=== PATIENT | female | born 1935 | race Caucasian/White ===

== ENCOUNTER 2016-09-03 14:35 | Emergency (ER) | payer OTHER ==
[~2016-09-03] VITALS: Ht 162.6 cm; Wt 75.0 kg
[~2016-09-03 14:35] MED LIST: BUPR1TAB29 PO; HYDR-3533 PO; LISI10TA PO; SIMV20TA PO; WARF-20 PO; WARF-58 PO
[2016-09-03 14:37] VITALS: BP 170/86; PULSE 77; RESP 16; TEMP 98.9; O2SAT 96
--- NOTE | 2016-09-03 15:08 | PD ---
Physical Exam Time Seen by Provider: 15:06 Narrative 81yo F sent by PCP for black diarrhea x 1 month. Abd pain on and off. +Nausea w/o vomiting. Denies fever. Patient seen in triage. VS reviewed. Awaiting bed placement. Data Data Last Documented VS Vital Signs Date Time Temp Pulse Resp B/P Pulse Ox O2 Delivery O2 Flow Rate FiO2 09/03/16 14:37 98.9 77 16 170/86 96 Room Air MDM Supervised Visit with LING: Fe Ingram Sep 03, 2016 15:08
--- NOTE | 2016-09-03 16:21 | PD ---
HPI Chief Complaint: GI Complaint Time Seen by Provider: 16:21 Travel History International Travel<30 days: No Contact w/Intl Traveler<30days: No Traveled to known affect area: No History of Present Illness HPI 81-year-old female with a history of hypertension, paroxysmal atrial fibrillation, hyperlipidemia, anticoagulated on Coumadin presents to the emergency department for evaluation of black stools for one month. The patient states that for the past month she's had black stool daily. States that these bowel movements have been loose and watery. States that before she has a bowel movement she has some mild abdominal cramping but otherwise denies any abdominal pain. States that she has some occasional nausea but no vomiting. States that she has tried [id number] antidiarrheals without improvement of symptoms. States that she has had some occasional lightheadedness. Denies any syncope, chest pain, shortness of breath, weakness. States that her last INR was 1 week ago and was subtherapeutic and he increased her dose for a few days. Denies any prior history of GI bleed. Last colonoscopy was "many years ago." No other complaints. PFSH Past Medical History Hx Anticoagulant Therapy: Yes (COUMADIN) Arthritis: Yes Asthma: No Atrial Fibrillation: Yes Autoimmune Disease: No Blood Disorders: No Anxiety: Yes Depression: Yes Heart Rhythm Problems: Yes (ATR. FIB.) Cancer: No Cardiac Catheterization: No Cardiovascular Problems: Yes (AFIB) High Cholesterol: Yes Chemotherapy: No Chest Pain: Yes Congestive Heart Failure: No COPD: No Cerebrovascular Accident: No Diabetes: No Diminished Hearing: No Endocrine: No GERD: No Genitourinary: No Headaches: Yes Hiatal Hernia: Yes (Inguinal hernia repair) Hypertension: Yes Immune Disorder: No Implanted Vascular Access Dvce: Yes Kidney Stones: Yes Musculoskeletal: Yes Neurologic: Yes Psychiatric: No Reproductive: No Respiratory: No Migraines: No Radiation Therapy: No Renal Failure: No Seizures: No Sickle Cell Disease: No Sleep Apnea: No Thyroid Disease: No Ulcer: No ?: Not Menopausal: Yes Past Surgical History Abdominal Surgery: Yes (Hernia repair) AICD: No Appendectomy: Yes Arteriovenous Shunt: No Cardiac Surgery: No Coronary Artery Bypass Graft: No Ear Surgery: No Endocrine Surgery: No Eye Surgery: No Genitourinary Surgery: No Insulin Pump: No Joint Replacement: Yes (BL hips, BL knees, (R) shoulder) Oral Surgery: Yes (T&A) Pacemaker: No Thoracic Surgery: No Tonsillectomy: Yes (&A) Other Surgery: Yes (Bladder mesh) Social History Alcohol Use: No Tobacco Use: No Substance Use: No Allergies-Medications (Allergen,Severity, Reaction): Coded Allergies: No Known Allergies (Verified , 09/03/16) Reported Meds & Prescriptions Reported Meds & Active Scripts Active Lortab (Hydrocodone-Acetaminophen) 5-325 Mg Tab 1 Tab PO Q4H PRN Reported Bupropion HCl ER 12 HR (Bupropion HCl) 150 Mg Tab 150 Mg PO DAILY Lisinopril-Hctz 10-12.5 Mg Tab 1 Tab PO DAILY Simvastatin 20 Mg Tab 20 Mg PO DAILY Warfarin 4 Mg Tab 4 Mg PO DAILY Warfarin 3 Mg Tab 3 Mg PO DAILY Review of Systems Except as stated in HPI: all other systems reviewed are Neg Physical Exam Narrative GENERAL: Well-nourished and well-developed pleasant patient in no acute distress who is nontoxic appearing. SKIN: Warm and dry.. HEAD: Normocephalic and atraumatic. EYES: No injection, drainage, or hyphema noted. PERRLA. EOMI. ENT: No nasal drainage noted. Oropharynx is clear. NECK: Supple and the trachea is midline. CARDIOVASCULAR: Regular rate and rhythm. RESPIRATORY: Breath sounds are equal bilaterally with no accessory muscle use, wheezing, rhonchi, or crackles. GASTROINTESTINAL: Abdomen is soft, non-tender, and nondistended. RECTAL EXAM: No masses or tenderness. No stool in the rectal vault. Performed in the presence of Davina Luna RN. MUSCULOSKELETAL: No obvious deformities, swelling, cyanosis, or ecchymosis is present throughout the upper and lower extremities. Patient has full range of motion without any signs of neurovascular compromise. NEUROLOGICAL: Awake, alert, and oriented. Normal speech and gait. Cranial nerves are grossly intact. Data Data Last Documented VS Vital Signs Date Time Temp Pulse Resp B/P Pulse Ox O2 Delivery O2 Flow Rate FiO2 09/03/16 16:34 63 18 162/78 97 Room Air 09/03/16 14:37 98.9 Orders Complete Blood Count With Diff (09/03/16 16:20) Comprehensive Metabolic Panel (09/03/16 16:20) Lipase (09/03/16 16:20) Prothrombin Time / Inr (Pt) (09/03/16 16:20) Act Partial Throm Time (Ptt) (09/03/16 16:20) Type And Screen (09/03/16 16:20) Ecg Monitoring (09/03/16 16:20) Iv Access Insert/Monitor (09/03/16 16:20) Oximetry (09/03/16 16:20) Sodium Chloride 0.9% Flush (Ns Flush) (09/03/16 16:30) Labs Laboratory Tests Test 09/03/16 16:29 White Blood Count 6.9 TH/MM3 Red Blood Count 4.47 MIL/MM3 Hemoglobin 13.3 GM/DL Hematocrit 38.7 % Mean Corpuscular Volume 86.5 FL Mean Corpuscular Hemoglobin 29.7 PG Mean Corpuscular Hemoglobin 34.3 % Concent Red Cell Distribution Width 15.1 % Platelet Count 263 TH/MM3 Mean Platelet Volume 9.6 FL Neutrophils (%) (Auto) 72.1 % Lymphocytes (%) (Auto) 13.1 % Monocytes (%) (Auto) 10.7 % Eosinophils (%) (Auto) 3.5 % Basophils (%) (Auto) 0.6 % Neutrophils # (Auto) 4.9 TH/MM3 Lymphocytes # (Auto) 0.9 TH/MM3 Monocytes # (Auto) 0.7 TH/MM3 Eosinophils # (Auto) 0.2 TH/MM3 Basophils # (Auto) 0.0 TH/MM3 CBC Comment DIFF FINAL Differential Comment Prothrombin Time 19.0 SEC Prothromb Time International 1.7 RATIO Ratio Activated Partial 31.5 SEC Thromboplast Time Sodium Level 139 MEQ/L Potassium Level 4.5 MEQ/L Chloride Level 103 MEQ/L Carbon Dioxide Level 31.9 MEQ/L Anion Gap 4 MEQ/L Blood Urea Nitrogen 11 MG/DL Creatinine 0.65 MG/DL Estimat Glomerular Filtration 87 ML/MIN Rate Random Glucose 80 MG/DL Calcium Level 9.0 MG/DL Total Bilirubin 0.4 MG/DL Aspartate Amino Transf 22 U/L (AST/SGOT) Alanine Aminotransferase 33 U/L (ALT/SGPT) Alkaline Phosphatase 55 U/L Total Protein 6.7 GM/DL Albumin 3.7 GM/DL Lipase 89 U/L Blood Type A [facility] Medical Decision Making Medical Screen Exam Complete: Yes Emergency Medical Condition: Yes Differential Diagnosis GI bleed versus anticoagulation versus dehydration versus electrolyte abnormality versus gastroenteritis Narrative Course 81-year-old female presents to the emergency department for evaluation of black stool for the past month. Patient is afebrile, vital signs are stable. No evidence of hemodynamic instability. Abdominal examination is benign. On physical examination she had only a small amount of stool in the rectal vault which I applied to the right square of the hemaprompt card and was negative. IV access is obtained, labs been drawn and sent. Patient is placed on cardiac telemetry and pulse oximetry monitoring. CBC is unremarkable. CMP is unremarkable. Coag show INR is 1.7, otherwise unremarkable. Patient has remained stable without complaint while here in the emergency department. Labs are reassuring, patient is hemodynamically stable. No evidence for blood loss. Discussed all findings with the patient. She is advised to follow up as an outpatient with her PCP. Patient verbalizes understanding and agreement with treatment plan. I discussed the case with my attending physician Dr. Funez who is aware of the patients history, physical examination findings, and treatment plan. Diagnosis Primary Impression: Dark stools Referrals: Primary Care Physician Patient Instructions: General Instructions Additional Instructions: Follow-up with your Primary Care Physician. Return to the ED for any acute worsening of symptoms. Med/Other Pt SpecificInfo: No Change to Meds Disposition: 01 DISCHARGE HOME Condition: Stable Fe Larios Sep 03, 2016 16:21
[2016-09-03] MEDS ORDERED: SODIUM CHLORIDE 0.9% FLUSH 10 ML FLUSH IVF PRN (16:30)
[2016-09-03 16:31] VITALS: O2SAT 98
[2016-09-03 16:34] VITALS: BP 162/78; PULSE 63; RESP 18; O2SAT 97
[2016-09-03 16:47] LABS: AUTOMATED NEUTROPHIL # 4.9 TH/MM3 (1.8-7.7); BASOPHIL % 0.6 % (0.0-2.0); EOSINOPHIL # 0.2 TH/MM3 (0-0.4); EOSINOPHIL % 3.5 % (0.0-4.0); HEMATOCRIT 38.7 % (35.0-46.0); HEMO FLAGS DIFF FINAL; LYMPH % 13.1 % (9.0-44.0); LYMPHOCYTE # 0.9 TH/MM3 (1.0-4.8); MEAN CELL VOLUME 86.5 FL (80.0-100.0); MEAN CORPUSCULAR HEMOGLOBIN 29.7 PG (27.0-34.0); MEAN CORPUSCULAR HGB CONC 34.3 % (32.0-36.0); MONO % 10.7 % (0.0-8.0); NEUT % 72.1 % (16.0-70.0); PLATELET COUNT 263 TH/MM3 (150-450); RED BLOOD COUNT 4.47 MIL/MM3 (4.00-5.30); RED CELL DISTRIBUTION WIDTH 15.1 % (11.6-17.2); WHITE BLOOD COUNT 6.9 TH/MM3 (4.0-11.0)
[2016-09-03 17:00] LABS: APTT (PATIENT) 31.5 SEC (24.3-30.1); INTERNATIONAL NORMALIZED RATIO 1.7 RATIO
[2016-09-03 17:07] LABS: ANION GAP 4 MEQ/L (5-15); AST (GOT) 22 U/L (15-37); BICARBONATE 31.9 MEQ/L (21.0-32.0); BLOOD UREA NITROGEN 11 MG/DL (7-18); CHLORIDE 103 MEQ/L (98-107); GLOMERULAR FILTRATION RATE 87 ML/MIN (>89); POTASSIUM 4.5 MEQ/L (3.5-5.1); SODIUM (NA) 139 MEQ/L (136-145)
[2016-09-03 17:08] LABS: ALT (GPT) 33 U/L (10-53)
[2016-09-03 17:10] LABS: ALKALINE PHOSPHATASE 55 U/L (45-117); TOTAL BILIRUBIN ADULT 0.4 MG/DL (0.2-1.0)
== END 2016-09-03 18:07 | disposition home or self-care (01) ==
LOC: NEPE 14:35
DX: R19.5 Other fecal abnormalities (principal); I10 Essential (primary) hypertension; I48.0 Paroxysmal atrial fibrillation; E78.5 Hyperlipidemia, unspecified; R10.9 Unspecified abdominal pain; R11.0 Nausea; R42 Dizziness and giddiness; Z79.01 Long term (current) use of anticoagulants
CPT/HCPCS: 80053; 83690; 85025; 85610; 85730; 86850; 86900; 86901; 99283

== ENCOUNTER 2017-07-16 16:22 | Emergency (ER) | payer OTHER ==
[~2017-07-16] VITALS: Ht 162.6 cm; Wt 81.0 kg
[2017-07-16 16:27] VITALS: BP 119/64; PULSE 108; RESP 18; TEMP 97.7; O2SAT 98
[2017-07-16] MEDS ORDERED: HYDR-3516 PO (16:51)
[2017-07-16] MEDS ORDERED: BUPR1TAB70 PO (16:51)
[2017-07-16] MEDS ORDERED: SODIUM CHLORIDE 0.9% FLUSH 10 ML FLUSH IVF PRN (17:00)
--- NOTE | 2017-07-16 17:00 | PD ---
HPI Chief Complaint: Respiratory Symptoms Time Seen by Provider: 16:43 Travel History International Travel<30 days: No Contact w/Intl Traveler<30days: No Traveled to known affect area: No History of Present Illness HPI Patient is a 82-year-old female with history of atrial fibrillation currently taking Coumadin, hyperlipidemia, hypertension, presents the emergency room with complaints of shortness of breath. Patient reports that she has been feeling short of breath for the past few weeks, reports that she normally could walk to the pool without any issues, reports that walking short distances causes her to be short of breath. Patient endorses no history of PE or DVT, reports that she was sent by her primary care doctor to rule out PE and DVT as her legs have been swollen for the past 2 weeks as well. Patient denies any recent travels or trips. Patient reports that she has been compliant with her Coumadin. Patient also complains of nonproductive cough for the past few weeks, patient also concerned that she may have pneumonia. Patient does not smoke, does not use oxygen at baseline. PFSH Past Medical History Hx Anticoagulant Therapy: Yes (COUMADIN) Arthritis: Yes Asthma: No Atrial Fibrillation: Yes Autoimmune Disease: No Blood Disorders: No Anxiety: Yes Depression: Yes Heart Rhythm Problems: Yes (ATR. FIB.) Cancer: No Cardiac Catheterization: No Cardiovascular Problems: Yes (AFIB) High Cholesterol: Yes Chemotherapy: No Chest Pain: Yes Congestive Heart Failure: No COPD: No Cerebrovascular Accident: No Diabetes: No Patient Takes Glucophage: No Diminished Hearing: No Endocrine: No Gastrointestinal Disorders: No GERD: No Genitourinary: No Headaches: Yes Hiatal Hernia: Yes (Inguinal hernia repair) Heparin Induced Thrombocytopen: No Hypertension: Yes Immune Disorder: No Implanted Vascular Access Dvce: Yes Kidney Stones: Yes Musculoskeletal: Yes Neurologic: Yes Psychiatric: No Reproductive: No Respiratory: No Migraines: No Radiation Therapy: No Renal Failure: No Seizures: No Sickle Cell Disease: No Sleep Apnea: No Thyroid Disease: No Ulcer: No Tetanus Vaccination: < 5 Years ?: Not Menopausal: Yes Past Surgical History Abdominal Surgery: Yes (Hernia repair) AICD: No Appendectomy: Yes Arteriovenous Shunt: No Cardiac Surgery: No Coronary Artery Bypass Graft: No Ear Surgery: No Endocrine Surgery: No Eye Surgery: No Genitourinary Surgery: No Insulin Pump: No Joint Replacement: Yes (BL hips, BL knees, (R) shoulder) Neurologic Surgery: No Oral Surgery: Yes (T&A) Pacemaker: No Thoracic Surgery: No Tonsillectomy: Yes (&A) Other Surgery: Yes (Bladder mesh) Family History Family Myocardial Infarction: No Social History Alcohol Use: No Tobacco Use: No Substance Use: No Allergies-Medications (Allergen,Severity, Reaction): Coded Allergies: No Known Allergies (Verified Adverse Reaction, Unknown, 07/16/17) Reported Meds & Prescriptions Reported Meds & Active Scripts Active Reported Hydrocodone-Acetaminophen 5-325 mg Tab 1 Tab PO Q4H PRN Bupropion HCl ER 12 HR (Bupropion HCl) 100 Mg Tab 150 Mg PO DAILY Lisinopril-Hctz 10-12.5 Mg Tab 1 Tab PO DAILY Simvastatin 20 Mg Tab 20 Mg PO DAILY Warfarin 4 Mg Tab 4 Mg PO DAILY Warfarin 3 Mg Tab 3 Mg PO DAILY Review of Systems Cardiovascular: Positive: Dyspnea on exertion, No: Chest Pain or Discomfort, Palpitations, Irregular Rhythm, Tachycardia, Diaphoresis, Syncope Respiratory: Positive: Cough, Shortness of Breath, No: Wheezing Physical Exam Narrative GENERAL: Mild distress SKIN: Focused skin assessment warm/dry. HEAD: Atraumatic. Normocephalic. EYES: Pupils equal and round. No scleral icterus. No injection or drainage. ENT: No nasal bleeding or discharge. Mucous membranes pink and moist. NECK: Trachea midline. No JVD. CARDIOVASCULAR: Irregular regular, no murmur appreciated. RESPIRATORY: No accessory muscle use. Clear to auscultation. Breath sounds equal bilaterally. GASTROINTESTINAL: Abdomen soft, non-tender, nondistended. Hepatic and splenic margins not palpable. MUSCULOSKELETAL: No obvious deformities. No clubbing. No cyanosis. +2 nonpitting edema. NEUROLOGICAL: Awake and alert. No obvious cranial nerve deficits. Motor grossly within normal limits. Normal speech. PSYCHIATRIC: Appropriate mood and affect; insight and judgment normal. Data Data Last Documented VS Vital Signs Date Time Temp Pulse Resp B/P (MAP) Pulse Ox O2 Delivery O2 Flow Rate FiO2 07/16/17 20:01 99 Nasal Cannula 2.00 07/16/17 20:01 74 18 146/96 (113) 07/16/17 16:27 97.7 Orders Orders Electrocardiogram (07/16/17 ) Complete Blood Count With Diff (07/16/17 16:51) Comprehensive Metabolic Panel (07/16/17 16:51) B-Type Natriuretic Peptide (07/16/17 16:51) Act Partial Throm Time (Ptt) (07/16/17 16:51) Prothrombin Time / Inr (Pt) (07/16/17 16:51) Magnesium (Mg) (07/16/17 16:51) Ckmb (Isoenzyme) Profile (07/16/17 16:51) Troponin I (07/16/17 16:51) Urinalysis - C+S If Indicated (07/16/17 16:51) Influenzae A/B Antigen (07/16/17 16:51) Iv Access Insert/Monitor (07/16/17 16:51) Ecg Monitoring (07/16/17 16:51) Oximetry (07/16/17 16:51) Oxygen Administration (07/16/17 16:51) Chest, Single Ap (07/16/17 16:51) Sodium Chloride 0.9% Flush (Ns Flush) (07/16/17 17:00) Us Leg Venous Doppler Bilat (07/16/17 ) Ct Pulmonary Angiogram (07/16/17 18:24) Troponin I (07/16/17 20:00) Iohexol 350 Inj (Omnipaque 350 Inj) (07/16/17 19:09) Electrocardiogram (07/16/17 ) Potassium Chloride (Kcl) (07/16/17 19:30) Electrocardiogram (07/16/17 17:11) Labs Laboratory Tests Test 07/16/17 17:00 07/16/17 20:00 White Blood Count 9.9 TH/MM3 Red Blood Count 5.02 MIL/MM3 Hemoglobin 13.9 GM/DL Hematocrit 42.5 % Mean Corpuscular Volume 84.6 FL Mean Corpuscular Hemoglobin 27.6 PG Mean Corpuscular Hemoglobin Concent 32.6 % Red Cell Distribution Width 15.1 % Platelet Count 358 TH/MM3 Mean Platelet Volume 8.2 FL Neutrophils (%) (Auto) 74.4 % Lymphocytes (%) (Auto) 14.8 % Monocytes (%) (Auto) 7.0 % Eosinophils (%) (Auto) 3.3 % Basophils (%) (Auto) 0.5 % Neutrophils # (Auto) 7.4 TH/MM3 Lymphocytes # (Auto) 1.5 TH/MM3 Monocytes # (Auto) 0.7 TH/MM3 Eosinophils # (Auto) 0.3 TH/MM3 Basophils # (Auto) 0.0 TH/MM3 CBC Comment DIFF FINAL Differential Comment Prothrombin Time 39.6 SEC Prothromb Time International Ratio 3.9 RATIO Activated Partial Thromboplast Time 44.0 SEC Blood Urea Nitrogen 13 MG/DL Creatinine 0.83 MG/DL Random Glucose 102 MG/DL Total Protein 7.6 GM/DL Albumin 3.6 GM/DL Calcium Level 8.7 MG/DL Magnesium Level 2.1 MG/DL Alkaline Phosphatase 81 U/L Aspartate Amino Transf (AST/SGOT) 18 U/L Alanine Aminotransferase (ALT/SGPT) 27 U/L Total Bilirubin 0.7 MG/DL Sodium Level 140 MEQ/L Potassium Level 3.4 MEQ/L Chloride Level 104 MEQ/L Carbon Dioxide Level 28.6 MEQ/L Anion Gap 7 MEQ/L Estimat Glomerular Filtration Rate 66 ML/MIN Total Creatine Kinase 90 U/L Troponin I LESS THAN 0.02 NG/ML LESS THAN 0.02 NG/ML B-Type Natriuretic Peptide 195 PG/ML MDM Medical Decision Making Medical Screen Exam Complete: Yes Emergency Medical Condition: Yes Medical Record Reviewed: Yes Interpretation(s) Vital Signs Date Time Temp Pulse Resp B/P (MAP) Pulse Ox O2 Delivery O2 Flow Rate FiO2 07/16/17 16:49 93 Nasal Cannula 2.00 07/16/17 16:34 18 98 Room Air 07/16/17 16:27 97.7 108 18 119/64 (82) 98 Room Air Differential Diagnosis A. fib with RVR, CHF, DVT, PE, pneumonia, influenza, electrolyte abnormality, pneumothorax Narrative Course Patient is an 82 year old female who presents to the ER with complaints of 2-3 weeks of nonproductive cough with dyspnea on exertion with b/l lower extremity edema. During the course of the patients emergency department visit, the patients history, examination, and differential diagnosis were reviewed with the patient. The patient was placed on a manager cardiac with oximetry and frequent blood pressure monitoring. The patient had an IV access obtained and blood work sent for analysis. The patient was initially provided oxygen as her pulse ox was 92-93% on room air The patients laboratory studies were reviewed and remarkable for: Laboratory Tests Test 07/16/17 17:00 White Blood Count 9.9 TH/MM3 (4.0-11.0) Red Blood Count 5.02 MIL/MM3 (4.00-5.30) Hemoglobin 13.9 GM/DL (11.6-15.3) Hematocrit 42.5 % (35.0-46.0) Mean Corpuscular Volume 84.6 FL (80.0-100.0) Mean Corpuscular Hemoglobin 27.6 PG (27.0-34.0) Mean Corpuscular Hemoglobin Concent 32.6 % (32.0-36.0) Red Cell Distribution Width 15.1 % (11.6-17.2) Platelet Count 358 TH/MM3 (150-450) Mean Platelet Volume 8.2 FL (7.0-11.0) Neutrophils (%) (Auto) 74.4 % (16.0-70.0) Lymphocytes (%) (Auto) 14.8 % (9.0-44.0) Monocytes (%) (Auto) 7.0 % (0.0-8.0) Eosinophils (%) (Auto) 3.3 % (0.0-4.0) Basophils (%) (Auto) 0.5 % (0.0-2.0) Neutrophils # (Auto) 7.4 TH/MM3 (1.8-7.7) Lymphocytes # (Auto) 1.5 TH/MM3 (1.0-4.8) Monocytes # (Auto) 0.7 TH/MM3 (0-0.9) Eosinophils # (Auto) 0.3 TH/MM3 (0-0.4) Basophils # (Auto) 0.0 TH/MM3 (0-0.2) CBC Comment DIFF FINAL Differential Comment Prothrombin Time 39.6 SEC (9.8-11.6) Prothromb Time International Ratio 3.9 RATIO Activated Partial Thromboplast Time 44.0 SEC (24.3-30.1) Blood Urea Nitrogen 13 MG/DL (7-18) Creatinine 0.83 MG/DL (0.50-1.00) Random Glucose 102 MG/DL (74-106) Total Protein 7.6 GM/DL (6.4-8.2) Albumin 3.6 GM/DL (3.4-5.0) Calcium Level 8.7 MG/DL (8.5-10.1) Magnesium Level 2.1 MG/DL (1.5-2.5) Alkaline Phosphatase 81 U/L (45-117) Aspartate Amino Transf (AST/SGOT) 18 U/L (15-37) Alanine Aminotransferase (ALT/SGPT) 27 U/L (10-53) Total Bilirubin 0.7 MG/DL (0.2-1.0) Sodium Level 140 MEQ/L (136-145) Potassium Level 3.4 MEQ/L (3.5-5.1) Chloride Level 104 MEQ/L (98-107) Carbon Dioxide Level 28.6 MEQ/L (21.0-32.0) Anion Gap 7 MEQ/L (5-15) Estimat Glomerular Filtration Rate 66 ML/MIN (>89) Total Creatine Kinase 90 U/L (26-192) Troponin I LESS THAN 0.02 NG/ML B-Type Natriuretic Peptide 195 PG/ML (0-100) Radiology studies were reviewed and remarkable for: Last Impressions Chest X-Ray 07/16/171650 Signed Impressions: Service Date/Time: June 16:58 - CONCLUSION: 1. Cardiomegaly and COPD. 2. No evidence of acute air space disease or congestion. 3. Status post right shoulder arthroplasty. Hayden Lala MD Lower Extremity Ultrasound 07/16/17 0000 Signed Impressions: Service Date/Time: June 17:39 - CONCLUSION: Normal examination. Gama Barbosa MD Microbiology Date/Time Source Procedure Growth Status 07/16/17 17:00 Nasal Aspirate Influenza Types A,B Antigen (LENY) - Final NEGATIVE FOR FLU A AND B ANTIGEN.... Complete Last Impressions Chest X-Ray 07/16/171650 Signed Impressions: Service Date/Time: June 16:58 - CONCLUSION: 1. Cardiomegaly and COPD. 2. No evidence of acute air space disease or congestion. 3. Status post right shoulder arthroplasty. Hayden Lala MD Lower Extremity Ultrasound 07/16/17 0000 Signed Impressions: Service Date/Time: June 17:39 - CONCLUSION: Normal examination. Gama Barbosa MD CT angio: no evidence of PE, no consolidation or pneumothorax Patient lab work was evaluated, potassium was 2.4 which was repleted. Troponin was 0.02, BNP 195, INR 3.9. trop at 2000 0.02 Doppler lower extremities and no evidence of DVT, CT showed no evidence of PE. I discussed with patient need to observe her in the hospital to rule out cardiac causes for her shortness of breath. Patient refuses admission to the hospital. Patient would rather follow-up with her primary care doctor and adamantly refuses admission to the hospital. Signs and symptoms of when to return to the ER was reviewed with patient in detail. Discussed with patient that she will need to follow-up with a head men's tennis coach as soon as possible, patient encouraged not to perform any strenuous activities until she is seen and cleared by her head men's tennis coach. I did offer patient admission to the hospital multiple times for workup for her dyspnea which patient refuses. Risks and benefits were reviewed with patient in detail. Diagnosis Primary Impression: Dyspnea Qualified Codes: R06.09 - Other forms of dyspnea Patient Instructions: General Instructions Additional Instructions: Please provide patient with a copy of their lab work and studies at discharge* * Please follow up with your primary care doctor as soon as possible Return to the ER if symptoms worsen or progress Return to the ER as needed No exertional activities until you are seen and cleared by your head men's tennis coach Disposition: 01 DISCHARGE HOME Condition: Stable Debby Peters DO Jul 16, 2017 17:00
[2017-07-16 17:12] LABS: AUTOMATED NEUTROPHIL # 7.4 TH/MM3 (1.8-7.7); BASOPHIL % 0.5 % (0.0-2.0); EOSINOPHIL # 0.3 TH/MM3 (0-0.4); EOSINOPHIL % 3.3 % (0.0-4.0); HEMATOCRIT 42.5 % (35.0-46.0); HEMOGLOBIN 13.9 GM/DL (11.6-15.3); LYMPH % 14.8 % (9.0-44.0); LYMPHOCYTE # 1.5 TH/MM3 (1.0-4.8); MEAN CELL VOLUME 84.6 FL (80.0-100.0); MEAN CORPUSCULAR HEMOGLOBIN 27.6 PG (27.0-34.0); MEAN CORPUSCULAR HGB CONC 32.6 % (32.0-36.0); MEAN PLATELET VOLUME 8.2 FL (7.0-11.0); MONOCYTE # 0.7 TH/MM3 (0-0.9); NEUT % 74.4 % (16.0-70.0); PLATELET COUNT 358 TH/MM3 (150-450); RED BLOOD COUNT 5.02 MIL/MM3 (4.00-5.30); RED CELL DISTRIBUTION WIDTH 15.1 % (11.6-17.2); WHITE BLOOD COUNT 9.9 TH/MM3 (4.0-11.0)
[2017-07-16 17:26] LABS: CHLORIDE 104 MEQ/L (98-107); SODIUM (NA) 140 MEQ/L (136-145)
[2017-07-16 17:29] LABS: CALCIUM 8.7 MG/DL (8.5-10.1)
--- NOTE | 2017-07-16 17:29 | RADRPT ---
EXAM DATE/TIME: 07/16/2017 16:58 [facility] COMPARISON: CHEST SINGLE AP, December 04, 2014, 11:42. INDICATIONS : Short of breath. MEDICAL HISTORY : None. SURGICAL HISTORY : None. ENCOUNTER: Initial ACUITY: 1 day PAIN SCORE: 0/10 LOCATION: Bilateral chest FINDINGS: Heart is moderately enlarged. Lungs are hyperinflated but clear. Right shoulder replacement is noted. 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 CONCLUSION: 1. Cardiomegaly and COPD. 2. No evidence of acute air space disease or congestion. 3. Status post right shoulder arthroplasty. Hayden Lala MD on July 16, 2017 at 17:26 Board Certified Radiologist. This report was verified electronically.
[2017-07-16 17:30] LABS: ALBUMIN 3.6 GM/DL (3.4-5.0); BICARBONATE 28.6 MEQ/L (21.0-32.0); BLOOD UREA NITROGEN 13 MG/DL (7-18); GLUCOSE,RANDOM 102 MG/DL (74-106); MAGNESIUM 2.1 MG/DL (1.5-2.5)
[2017-07-16 17:32] LABS: INTERNATIONAL NORMALIZED RATIO 3.9 RATIO; PROTHROMBIN TIME - PATIENT 39.6 SEC (9.8-11.6)
[2017-07-16 17:33] LABS: ALT (GPT) 27 U/L (10-53); AST (GOT) 18 U/L (15-37); CREATININE 0.83 MG/DL (0.50-1.00); GLOMERULAR FILTRATION RATE 66 ML/MIN (>89)
[2017-07-16 17:35] LABS: TOTAL BILIRUBIN ADULT 0.7 MG/DL (0.2-1.0); TOTAL PROTEIN 7.6 GM/DL (6.4-8.2)
[2017-07-16 17:36] LABS: ALKALINE PHOSPHATASE 81 U/L (45-117)
[2017-07-16 17:38] LABS: TROPONIN I LESS THAN 0.02 NG/ML (0.02-0.05)
--- NOTE | 2017-07-16 18:28 | RADRPT ---
EXAM DATE/TIME: 07/16/2017 17:39 [facility] COMPARISON: No previous studies available for comparison. INDICATIONS : Bilateral leg swelling. MEDICAL HISTORY : Hypercholesterolemia. Hypertension. Headaches. Afib. Anticoagulant therapy. Hiatal hernia. Arthritis . Osteoporosis. Depression. Anxiety. Measles. Blood transfusion. C.diff. Kidney stones. SURGICAL HISTORY : Tonsillectomy.Appendectomy. Hernia repair. Bilateral hip replacement. Bilateral knee replacement. Kaushik dder mesh. Shoulder surgery. ENCOUNTER: Initial ACUITY: 2 weeks PAIN SCORE: 0/10 LOCATION: Bilateral legs. TECHNIQUE: Venous ultrasound of the left and right leg was performed from the inguinal ligament to the proximal calf. Real-time, color Doppler and spectral tracing, compression and augmentation techniques were us ed. FINDINGS: RIGHT LEG: There is normal compressibility of the deep venous system from the inguinal region to the proximal ca lf. No echogenic clot is seen in the lumen of the common femoral, femoral, popliteal, and posterior tibial veins. There is a normal response of the venous system to proximal and distal augmentation an d respiration. LEFT LEG: There is normal compressibility of the deep venous system from the inguinal region to the proximal ca lf. No echogenic clot is seen in the lumen of the common femoral, femoral, popliteal, and posterior tibial veins. There is a normal response of the venous system to proximal and distal augmentation an d respiration. CONCLUSION: Normal examination. Gama Barbosa MD on July 16, 2017 at 18:25 Board Certified Radiologist. This report was verified electronically.
[2017-07-16 18:39] VITALS: RESP 16; O2SAT 98
[2017-07-16] MEDS ORDERED: IOHEXOL 350 MG/ML 10 ML VIAL (for RAD DIAG) IVCONTRAST ONE (19:09)
--- NOTE | 2017-07-16 19:26 | RADRPT ---
EXAM DATE/TIME: 07/16/2017 19:01 [place] COMPARISON: No previous studies available for comparison. INDICATIONS : Short of breath. IV CONTRAST: 65 cc Omnipaque 350 (iohexol) IV RADIATION DOSE: 14.29 CTDIvol (mGy) MEDICAL HISTORY : Cardiovascular disease. Chronic obstructive pulmonary disease. Renal calculi.Hypertension. SURGICAL HISTORY : Inguinal hernia repair. Appendectomy. ENCOUNTER: Initial ACUITY: 2 weeks PAIN SCALE: 0/10 LOCATION: chest TECHNIQUE: Volumetric scanning of the chest was performed using a pulmonary embolism protocol MIP images were re constructed. Using automated exposure control and adjustment of the mA and/or kV according to patien t size, radiation dose was kept as low as reasonably achievable to obtain optimal diagnostic quality images. DICOM format image data is available electronically for review and comparison. Follow-up recommendations for detected pulmonary nodules are based at a minimum on nodule size and pa tient risk factors according to Fleischner Society Guidelines. FINDINGS: PULMONARY ARTERIES: No filling defects are seen in the pulmonary arteries through the segmental level. LUNGS: There is no consolidation or pneumothorax . No concerning pulmonary nodule is visualized. PLEURAE: There is no pleural thickening or pleural effusion. MEDIASTINUM: Cardiomegaly. No evidence of mediastinal mass or adenopathy. MUSCULOSKELETAL: Within normal limits for patient age. MISCELLANEOUS: Hepatic venous congestion. Hepatic cyst. CONCLUSION: No evidence of pulmonary embolism Gama Barbosa MD on July 16, 2017 at 19:21 Board Certified Radiologist. This report was verified electronically.
[2017-07-16] MEDS ORDERED: POTASSIUM CHLORIDE 10 MEQ CONTROLLED RELEASE TAB PO ONE (19:30)
[2017-07-16 20:01] VITALS: BP 146/96; PULSE 74; RESP 18; O2SAT 99
[2017-07-16 21:00] VITALS: BP 150/75; PULSE 76; RESP 18; O2SAT 97
--- NOTE | 2017-07-18 09:10 | EKG ---
Date Performed: 07/16/2017 Time Performed: 19:32:12 PTAGE: 82 years EKG: ATRIAL FIBRILLATION MINIMAL ST DEPRESSION ABNORMAL RHYTHM ECG PREVIOUS TRACING : 07/16/2017 16.57 DOCTOR: Paris Chand Interpretating Date/Time 07/18/2017 09:08:06
--- NOTE | 2017-07-18 09:15 | EKG ---
Date Performed: 07/16/2017 Time Performed: 17:11:19 PTAGE: 82 years EKG: ATRIAL FIBRILLATION MINIMAL ST DEPRESSION ABNORMAL RHYTHM ECG NO PREVIOUS TRACING DOCTOR: Paris Chand Interpretating Date/Time 07/18/2017 09:11:02
--- NOTE | 2017-07-18 09:15 | EKG ---
Date Performed: 07/16/2017 Time Performed: 16:57:29 PTAGE: 82 years EKG: ATRIAL FIBRILLATION NONSPECIFIC ST & T-WAVE ABNORMALITY ABNORMAL RHYTHM ECG PREVIOUS TRACING : 12/05/2014 11.43 DOCTOR: Paris Chand Interpretating Date/Time 07/18/2017 09:11:10
== END 2017-07-16 21:45 | disposition home or self-care (01) ==
LOC: PHED 16:22
DX: R06.00 Dyspnea, unspecified (principal); R60.0 Localized edema; J44.9 Chronic obstructive pulmonary disease, unspecified; I11.9 Hypertensive heart disease without heart failure; R94.31 Abnormal electrocardiogram [ECG] [EKG]; I48.91 Unspecified atrial fibrillation; E78.5 Hyperlipidemia, unspecified; F32.9 Major depressive disorder, single episode, unspecified; F41.9 Anxiety disorder, unspecified
CPT/HCPCS: 71045; 71275; 80053; 82550; 83735; 83880; 84484; 85025; 85610; 85730; 87804; 93005; 93970; 99285; Q9967

== ENCOUNTER 2017-08-20 13:47 | Emergency (ER) | payer OTHER ==
[~2017-08-20] VITALS: Ht 162.6 cm; Wt 83.0 kg
[~2017-08-20 13:47] MED LIST changes: -BUPR1TAB29 PO; +BUPR1TAB70 PO; +HYDR-3516 PO; -HYDR-3533 PO
[2017-08-20 13:51] VITALS: BP 131/82; PULSE 78; RESP 16; TEMP 98.2; O2SAT 95
--- NOTE | 2017-08-20 14:14 | PD ---
HPI Chief Complaint: Musculoskeletal Complaint Time Seen by Provider: 13:53 Travel History International Travel<30 days: No Contact w/Intl Traveler<30days: No Traveled to known affect area: No History of Present Illness HPI 82-year-old female presents to the emergency room for evaluation of right lower extremity swelling starting this morning when she woke up. Patient has been dealing with an infection on her right great toe for the past week. States she had her toenail against a wall and half of it fell off so she wrapped the rest off. She was started on Keflex 4 days ago for a toenail infection. She is taking 500 mg 4 times daily. She has not noticed a significant improvement in symptoms. Patient reports feeling tightness around the right ankle from the swelling but denies any pain. She denies fever, chills, nausea, vomiting. She is on Coumadin for A. fib. She denies any recent immobilization or surgeries. No history of blood clots. She is not on any estrogen. She called her primary care physician recommended she come in to the emergency room for an ultrasound. PFSH Past Medical History Hx Anticoagulant Therapy: Yes (COUMADIN) Arthritis: Yes Asthma: No Atrial Fibrillation: Yes Autoimmune Disease: No Blood Disorders: No Anxiety: Yes Depression: Yes Heart Rhythm Problems: Yes (ATR. FIB.) Cancer: No Cardiac Catheterization: No Cardiovascular Problems: Yes (AFIB) High Cholesterol: Yes Chemotherapy: No Chest Pain: Yes Congestive Heart Failure: No COPD: No Cerebrovascular Accident: No Diabetes: No Diminished Hearing: No Endocrine: No Gastrointestinal Disorders: No GERD: No Genitourinary: No Headaches: Yes Hiatal Hernia: Yes (Inguinal hernia repair) Heparin Induced Thrombocytopen: No Hypertension: Yes Immune Disorder: No Implanted Vascular Access Dvce: Yes Kidney Stones: Yes Musculoskeletal: Yes Neurologic: Yes Psychiatric: No Reproductive: No Respiratory: No Migraines: No Radiation Therapy: No Renal Failure: No Seizures: No Sickle Cell Disease: No Sleep Apnea: No Thyroid Disease: No Ulcer: No Tetanus Vaccination: < 5 Years Influenza Vaccination: Yes ?: Not Menopausal: Yes Past Surgical History Abdominal Surgery: Yes (Hernia repair) AICD: No Appendectomy: Yes Arteriovenous Shunt: No Cardiac Surgery: No Coronary Artery Bypass Graft: No Ear Surgery: No Endocrine Surgery: No Eye Surgery: No Genitourinary Surgery: No Insulin Pump: No Joint Replacement: Yes (BL hips, BL knees, (R) shoulder) Neurologic Surgery: No Oral Surgery: Yes (T&A) Pacemaker: No Thoracic Surgery: No Tonsillectomy: Yes (&A) Other Surgery: Yes (Bladder mesh) Social History Alcohol Use: Yes (occas wine) Tobacco Use: No Substance Use: No Allergies-Medications (Allergen,Severity, Reaction): Coded Allergies: No Known Allergies (Verified Adverse Reaction, Unknown, 08/20/17) Reported Meds & Prescriptions Reported Meds & Active Scripts Active Reported Bupropion HCl ER 12 HR (Bupropion HCl) 100 Mg Tab 150 Mg PO DAILY Lisinopril-Hctz 10-12.5 Mg Tab 1 Tab PO DAILY Simvastatin 20 Mg Tab 20 Mg PO DAILY Warfarin 4 Mg Tab 4 Mg PO DAILY Warfarin 3 Mg Tab 3 Mg PO DAILY Review of Systems Except as stated in HPI: all other systems reviewed are Neg Physical Exam Narrative GENERAL: Well-nourished, well-developed female no acute distress. Afebrile. Ambulatory. SKIN: Focused skin assessment warm/dry. Very mild erythema around the right great toe. HEAD: Normocephalic. EYES: No scleral icterus. No injection or drainage. NECK: Supple, trachea midline. No JVD or lymphadenopathy. CARDIOVASCULAR: Regular rate and rhythm without murmurs, gallops, or rubs. RESPIRATORY: Breath sounds equal bilaterally. No accessory muscle use. MUSCULOSKELETAL: No cyanosis. Nonpitting edema of the right lower extremity. Right calf measures 41 cm. Left calf measures 37 cm. 2+ dorsalis pedis pulses are equal bilaterally. Negative Homans test. No calf tenderness. Data Data Last Documented VS Vital Signs Date Time Temp Pulse Resp B/P (MAP) Pulse Ox O2 Delivery O2 Flow Rate FiO2 08/20/17 13:51 98.2 78 16 131/82 (98) 95 Orders Orders Us Leg Venous Doppler (08/20/17 ) [facility] Medical Decision Making Medical Screen Exam Complete: Yes Emergency Medical Condition: Yes Medical Record Reviewed: Yes Differential Diagnosis DVT, cellulitis, congestive heart failure Narrative Course 82-year-old female presents to the emergency room for evaluation of right lower extremity swelling for the past day. She denies any pain. She denies fever, chills, nausea, vomiting. No risk factors for DVT. She is on Coumadin for A. fib. She is currently being treated for infection of the right great toe because her nail came off and the nail bed is weeping and red. I do not suspect the entire leg has become infected. Patient has been on Keflex for 4 days and it does not seem to be much improved so I will add Bactrim. Physical exam reveals significant edema of the right lower extremity. It is nonpitting. Right leg is 41 cm and left is 37 cm. It is neurovascularly intact with 2+ dorsalis pedis pulse. Vital signs stable. Ultrasound is negative. I suspect venous insufficiency. Patient was encouraged to wear compression stockings and elevate her legs at night. Told to follow-up with her primary care physician or return to the emergency room for worsening symptoms. She understands and agrees to plan. Diagnosis Primary Impression: Right leg swelling Referrals: Primary Care Physician Additional Instructions: Wear compression stockings. Elevate legs above heart at night. Follow-up with a primary care physician. Return to the emergency room for worsening symptoms. Disposition: 01 DISCHARGE HOME Condition: Stable Deb Smith August 20, 2017 14:14
--- NOTE | 2017-08-20 15:37 | RADRPT ---
EXAM DATE: 08/20/2017 3:27 PM EDT AGE/SEX: 82 years / Female INDICATIONS: Right leg swelling. CLINICAL DATA: This is the patient's subsequent encounter. Patient reports that signs and symptoms h ave been present for 1 day and indicates a pain score of 0/10. MEDICAL/SURGICAL HISTORY: . Hypercholesterolemia. Hypertension. Headaches. Afib. Anticoagulant therapy. Hiatal hernia. Arthritis. Osteoporosis. Depression. Anxiety. Measles. Blood transfusion. C. diff. Kidney stones. . Tonsillectomy.Appendectomy. Hernia repair. Bilateral hip replacement. Bilater al knee replacement. Bladder mesh. Shoulder surgery. COMPARISON: No prior [facility] exams available for comparison. TECHNIQUE: Venous ultrasound of both lower extremities was performed from the inguinal ligament to t he proximal calf. Real-time, color Doppler and spectral tracing, compression and augmentation techni ques were used. FINDINGS: There is normal compressibility of the deep venous system from the inguinal region to the proximal ca lf. No echogenic clot is seen in the lumen of the common femoral, femoral, popliteal, and posterior tibial veins. There is a normal response of the venous system to proximal and distal augmentation an d respiration. CONCLUSION: 1. No sonographic evidence for right lower extremity DVT. Electronically signed by: Brad Guido MD 08/20/2017 3:36 PM EDT
== END 2017-08-20 15:53 | disposition home or self-care (01) ==
LOC: PHEFT 13:47
DX: M79.89 Other specified soft tissue disorders (principal); I48.91 Unspecified atrial fibrillation; I10 Essential (primary) hypertension; L03.039 Cellulitis of unspecified toe; Z79.01 Long term (current) use of anticoagulants
CPT/HCPCS: 93971; 99284

== ENCOUNTER 2017-10-29 09:53 | Observation (INO) ==
--- NOTE | 2017-10-29 11:39 | ED ---
HPI General Chief Complaint: Extremity Injury, Lower Stated Complaint: Poss Gout Time Seen by Provider: 10/29/17 11:26 History of Present Illness HPI Narrative: This patient complains of right ankle pain. She is at some swelling and discomfort. Worse with weightbearing. Duration 2 days. There is been no injury. She has chronic osteoarthritis but this feels different. Symptoms moderately severe. No alleviating factors. Related Data Home Medications Medication Instructions Recorded Confirmed lisinopril-hydrochlorothiazide 1 tab PO DAILY 10/29/17 10/29/17 simvastatin 20 mg PO QPM 10/29/17 10/29/17 warfarin [Coumadin] 7 mg PO DAILY 10/29/17 10/29/17 Allergies Allergy/AdvReac Type Severity Reaction Status Date / Time No Known Allergies Allergy Unverified 10/29/17 10:04 Review of Systems Except as stated in HPI: all other systems reviewed are negative [facility] Medical History Medical History Afib (Acute) Arthritis (Acute) Elevated cholesterol (Acute) Hypertension (Acute) Surgical History Surgical History H/O shoulder surgery (Acute) History of hip replacement, total (Acute) History of knee replacement (Acute) Social History Social History Substance History: No History of Abuse Smoking Status: Never smoker How Often Do You Have a Drink Containing Alcohol: 2 to 4 times a month Recent Travel in [facility] within the Last 8 Weeks: No Recent Out of Country Travel within the Last 8 Weeks: No Immunization History Tetanus Immunization: <5 Years Hx Influenza Vaccine This Season: Yes Exam Narrative Exam Narrative: GENERAL: Well-nourished, well-developed patient in no apparent distress. SKIN: Focused skin assessment reveals no rash and nodules. Skin is Warm and dry. HEAD: Atraumatic. Normocephalic. EYES: Pupils equal and round. No scleral icterus. No injection or drainage. ENT: No nasal bleeding or discharge. Mucous membranes pink and moist. NECK: Trachea midline. No JVD. CARDIOVASCULAR: Irregularly irregular rhythm. No murmur appreciated. RESPIRATORY: No accessory muscle use. Clear to auscultation. Breath sounds equal bilaterally. GASTROINTESTINAL: Abdomen soft, non-tender, nondistended. Hepatic and splenic margins not palpable. MUSCULOSKELETAL: Has severe lateral deviation of all of the toes of both feet. No clubbing. No cyanosis. There is some redness to the medial aspect of the right foot. There is some swelling about the ankle. The area is tender. Minimal tenderness at the first MTP joint. He does have some pain with passive and active movement of the ankle NEUROLOGICAL: Awake and alert. No obvious cranial nerve deficits. Motor grossly within normal limits. Normal speech. PSYCHIATRIC: Appropriate mood and affect; insight and judgment normal. Course Initial Documented Vital Signs Temperature 99.8 F H 10/29/17 10:02 Pulse Rate 96 H 10/29/17 10:02 Respiratory Rate 18 10/29/17 10:02 Blood Pressure 98/68 L 10/29/17 10:02 Pulse Oximetry 96 10/29/17 10:02 Last Documented Vital Signs Temperature 99.8 F H 10/29/17 10:02 Pulse Rate 91 H 10/29/17 13:11 Respiratory Rate 16 10/29/17 13:11 Blood Pressure 95/57 L 10/29/17 13:11 Pulse Oximetry 95 10/29/17 13:11 Medical Decision Making MDM Narrative Medical decision making narrative: IV placed and labs sent. Gave her 2 pain pills There is significant concern for a septic ankle joint. It could also be gout. Patient has some leukocytosis and low-grade temp of 99.8. There is erythema and warmth and pain and tenderness. Procedure note: Had a discussion with the patient. She agrees and signs formal consent for aspiration of the right ankle. I knew this would be a challenging one based on significant osteoarthritic distorsion of foot and ankle A lot of the landmarks are distorted. I attempted aspiration 3 separate times. This is after I utilized 4 cc of lidocaine 1% epinephrine for anesthesia. Prior to that I cleaned with Betadine swabs. Sterile field was maintained So after 3 attempts I could not get joint fluid. I am aborting at that point. Given that I cannot rule out septic joint and going to admit her to the hospitalist. I discussed with Dr. Yang. Differential Diagnosis Differential Diagnosis: Septic ankle joint, gout, cellulitis Medical Records Medical records reviewed: Yes I reviewed the patient's medical records. Lab Data Result diagrams: 10/29/17 11:55 10/29/17 11:55 Lab Results 10/29/17 10/29/17 10/29/17 Range/Units 11:55 11:55 11:55 CBC w Diff Slide review pending WBC 14.2 H (4.0-11.0) th/mm3 RBC 4.95 (4.00-5.30) mil/mm3 Hgb 14.4 (11.6-15.3) gm/dL Hct 41.8 (35.0-46.0) % MCV 84.5 (80.0-100.0) fL MCH 29.0 (27.0-34.0) pg MCHC 34.3 (32.0-36.0) % RDW 15.9 (11.6-17.2) % Plt Count 350 (150-450) th/mm3 MPV 9.3 (7.0-11.0) fL Neut % (Auto) 79.3 H (16.0-70.0) % Lymph % (Auto) 8.3 L (9.0-44.0) % Rowan % (Auto) 8.9 H (0.0-8.0) % Eos % (Auto) 0.6 (0.0-4.0) % Baso % (Auto) 2.9 H (0.0-2.0) % Neut # (Auto) 11.2 H (1.8-7.7) th/mm3 Lymph # (Auto) 1.2 (1.0-4.8) th/mm3 Rowan # (Auto) 1.3 H (0.0-0.9) th/mm3 Eos # (Auto) 0.1 (0.0-0.4) th/mm3 Baso # (Auto) 0.4 H (0.0-0.2) th/mm3 WBC Differential . Diff Scan Auto diff confirmed Differential Comment . PT 22.5 H (9.8-11.6) sec INR 2.2 Ratio Sodium 135 L (136-145) meq/L Potassium 4.1 (3.5-5.1) meq/L Chloride 98 (98-107) meq/L Carbon Dioxide 31.1 (21.0-32.0) meq/L Anion Gap 6 (5-15) meq/L BUN 16 (7-18) mg/dL Creatinine 0.96 (0.50-1.00) mg/dL Estimated GFR 56 L (>89) mL/min Random Glucose 100 (74-106) mg/dL Calcium 9.3 (8.5-10.1) mg/dL Imaging Data Radiologist's impression: Ankle X-Ray 10/29/17 11:32 CONCLUSION: Chronic change as described above. An acute bony abnormality is not clearly seen. There is soft tissue swelling. Discharge Plan Discharge Disposition Patient Disposition: 30 Still Patient Discharge Condition Condition: Stable Discharge Details Diagnosis: Septic joint Physicians Team ED Provider: Jah Izquierdo Primary Care Provider: Jasen Mckeon Attending Provider: Georgiana Yang Discharge Interventions Interventions: Vital Signs Last Done: 10/29/17 13:11 Status ED Status: Admitted Patient
[2017-10-29 12:16] LABS: Potassium 4.1 meq/L (3.5-5.1)
[2017-10-29 12:18] LABS: Calcium 9.3 mg/dL (8.5-10.1); Carbon Dioxide 31.1 meq/L (21.0-32.0); INR 2.2 Ratio; Prothrombin Time 22.5 sec (9.8-11.6)
[2017-10-29 12:21] LABS: Baso # (Auto) 0.4 th/mm3 (0.0-0.2); Baso % (Auto) 2.9 % (0.0-2.0); Eos # (Auto) 0.1 th/mm3 (0.0-0.4); Eos % (Auto) 0.6 % (0.0-4.0); Hematocrit 41.8 % (35.0-46.0); Hemoglobin 14.4 gm/dL (11.6-15.3); Lymph # (Auto) 1.2 th/mm3 (1.0-4.8); Lymph % (Auto) 8.3 % (9.0-44.0); Mean Corpuscular HGB Conc 34.3 % (32.0-36.0); Mean Corpuscular Volume 84.5 fL (80.0-100.0); Mean Platelet Volume 9.3 fL (7.0-11.0); Mono # (Auto) 1.3 th/mm3 (0.0-0.9); Mono % (Auto) 8.9 % (0.0-8.0); Neut # (Auto) 11.2 th/mm3 (1.8-7.7); Neut % (Auto) 79.3 % (16.0-70.0); Platelet Count 350 th/mm3 (150-450); Red Blood Count 4.95 mil/mm3 (4.00-5.30); Red Cell Distribution Width 15.9 % (11.6-17.2); White Blood Count 14.2 th/mm3 (4.0-11.0)
--- NOTE | 2017-10-29 12:36 | XR ---
EXAM DATE: 10/29/2017 12:12 PM EDT AGE/SEX: 82 years / Female INDICATIONS: No known injury. Pain in right ankle all over, mostly anteriorly. CLINICAL DATA: This is the patient's initial encounter. Patient reports that signs and symptoms have been present for 1 day and indicates a pain score of 5/10. MEDICAL/SURGICAL HISTORY: None. None. COMPARISON: No prior exams available for comparison. FINDINGS: A fracture is not seen. There is hypertrophic change surrounding the lateral and medial malleoli elysia ons. There is a calcaneal spur at the plantar aponeurosis attachment site with adjacent hypertrophic calcification. There is soft tissue swelling at the ankle. The ankle is aligned. The bones appear ost eopenic. CONCLUSION: Chronic change as described above. An acute bony abnormality is not clearly seen. There is soft tissu e swelling. Electronically signed by: Gama Sanchez MD 10/29/2017 12:35 PM EDT
[2017-10-29] MEDS ORDERED: Lidocaine 1%/Epinephrine 1:100,000 Inj 20 ML Vial INFILTRATN ONE (12:45)
[2017-10-29] MEDS ORDERED: Acetaminophen 325 MG Tablet PO PRN (14:22)
[2017-10-29] MEDS ORDERED: Temazepam 15 MG Capsule PO PRN (14:22)
[2017-10-29] MEDS ORDERED: Ketorolac Inj 30 MG/ML (IVP) Vial IV.PUSH ONE (14:27)
[2017-10-29] MEDS ORDERED: Morphine Sulfate Inj 2 MG/ML Vial IV.PUSH ONE (14:32)
--- NOTE | 2017-10-29 14:33 | P.HPIM ---
History of Present Illness Primary Care Physician: Jasen Mckeon MD Chief Complaint: Right ankle pain and swelling History of Present Illness: Patient is a 82-year-old female with a history of severe hallux valgus bilaterally with multiple joints affected by severe osteoarthritis. She has has significant erythema and edema of the right ankle and foot for the last 2 days. She also injury and has had no systemic symptoms. She does have some skin abrasions not been able to ambulate. Pain has been relieved in the emergency room after Percocet. The patient was seen by the ER doctor who did attempt a joint aspiration was unsuccessful due to the increased edema and difficulty finding landmarks of the ankle. Patient normally does not take any pain she is come to the hospital for further evaluation. - Diagnosis (1) Afib (2) Ankle pain, right Inpatient Certification: I certify that the inpatient services were ordered in accordance with Medicare regulations governing the order. This includes certification that hospital inpatient services are reasonable and necessary and in the case of services not specified as inpatient-only under 42 CFR 419.22(n), that they are appropriately provided as inpatient services in accordance to with the 2-midnight benchmark under 43 CFR 412.3(e) Review of Systems All other systems reviewed negative except as stated in HPI PMFSH - History History Provided By: Patient - Medical History Medical History: Medical History (Last Reviewed 10/29/17 @ 14:29 by Georgiana Yang MD) Afib Arthritis Elevated cholesterol Hypertension - Surgical History Surgical History: Surgical History (Last Updated 10/29/17 @ 14:29 by Georgiana Yang MD) H/O bladder repair surgery H/O shoulder surgery History of hip replacement, total History of knee replacement - Family History Family History: Family History (Last Updated 10/29/17 @ 14:30 by Georgiana Yang MD) Other No family history of cardiac disease - Tobacco History Smoking Status: Never smoker - Alcohol History How Often Do You Have a Drink Containing Alcohol: 2 to 4 times a month - Substance Use History Substance History: No History of Abuse - Travel History Recent Travel in the [place] Within the Last 8 Weeks: No Recent Travel Out of the Country Within the Last 8 Weeks: No - Immunization History Tetanus Immunization: <5 Years Hx Influenza Vaccine This Season: Yes Medications and Allergies Active Medications: Active Medications Acetaminophen (Tylenol) 650 mg PO Q4H PRN PRN Reason: Temp > 100.4 Ceftriaxone Sodium 1,000 mg/ (Sodium Chloride) 100 mls @ 200 mls/hr IV.SIG Q24H GLADYS Lactulose (Lactulose Liq) 30 ml PO DAILY PRN PRN Reason: SEVERE CONSITIPATION Metoclopramide HCl (Reglan Inj) 5 mg IV.PUSH Q6HR PRN; Protocol PRN Reason: NAUSEA OR VOMITING Non-Formulary Medication (Lisinopril-Hydrochlorothiazide [Lisinopril- Hydrochlorothiazide]) 1 tab PO DAILY GLADYS Non-Formulary Medication (Simvastatin [Simvastatin]) 20 mg PO QPM GLDAYS Temazepam (Restoril) 15 mg PO HS PRN PRN Reason: INSOMNIA Allergies Allergy/AdvReac Type Severity Reaction Status Date / Time No Known Allergies Allergy Unverified 10/29/17 10:04 Home Medications Medication Instructions Recorded Confirmed Type lisinopril-hydrochlorothiazide 1 tab PO DAILY 10/29/17 10/29/17 History simvastatin 20 mg PO QPM 10/29/17 10/29/17 History warfarin [Coumadin] 7 mg PO DAILY 10/29/17 10/29/17 History Exam Vital signs: Vital Signs 10/29/17 10:02 10/29/17 10:04 10/29/17 13:11 Temperature 99.8 F H Pulse Rate 96 H 92 H 91 H Respiratory Rate 18 16 16 Blood Pressure 98/68 L 110/74 95/57 L Pulse Oximetry 96 100 95 10/29/17 14:17 Temperature Pulse Rate 98 H Respiratory Rate Blood Pressure 96/73 L Pulse Oximetry 95 Intake & Output 10/28/17 10/29/17 10/29/17 18:59 06:59 18:59 Weight 81 kg Narrative: GENERAL: Well-nourished, well-developed patient. SKIN: Warm and dry. HEAD: Normocephalic. EYES: No scleral icterus. No injection or drainage. NECK: Supple, trachea midline. No JVD or lymphadenopathy. CARDIOVASCULAR: Regular rate and rhythm without murmurs, gallops, or rubs. RESPIRATORY: Breath sounds equal bilaterally. No accessory muscle use. GASTROINTESTINAL: Abdomen soft, non-tender, nondistended. MUSCULOSKELETAL: Bilateral hallux valgus with right ankle edema and erythema as well as cellulitic changes of the right dorsal foot and several areas of skin abrasion no cyanosis, or edema. BACK: Nontender without obvious deformity. No CVA tenderness. NEUROLOGICAL: Awake and alert. Cranial nerves II through XII intact. Motor and sensory grossly within normal limits. Five out of 5 muscle strength in all muscle groups. Normal speech. Results - Labs CBC & Chem 7: 10/29/17 11:55 10/29/17 11:55 Labs: Short CBC 10/29/17 Range/Units 11:55 WBC 14.2 H (4.0-11.0) th/mm3 Hgb 14.4 (11.6-15.3) gm/dL Hct 41.8 (35.0-46.0) % Plt Count 350 (150-450) th/mm3 BMP 10/29/17 11:55 Sodium 135 L Potassium 4.1 Chloride 98 Carbon Dioxide 31.1 BUN 16 Creatinine 0.96 Calcium 9.3 - Imaging Impressions Ankle X-Ray 10/29/17 11:32 CONCLUSION: Chronic change as described above. An acute bony abnormality is not clearly seen. There is soft tissue swelling. Caprini VTE Risk Assessment Caprini VTE Risk Assessment: Moderate/High Risk (score >= 2) VTE Pharmacological Exception Reason: High risk for bleeding Caprini Risk Assessment Model: Point Value = 1 Point Value = 2 Point Value = 3 Point Value = 5 Age 41-60 Minor surgery BMI > 25 kg/m2 Swollen legs Varicose veins or History of unexplained or recurrent spontaneous Oral contraceptives or hormone replacement Sepsis (< 1 month) Serious lung disease, including pneumonia (< 1 month) Abnormal pulmonary function Acute myocardial infarction Congestive heart failure (< 1 month) History of inflammatory bowel disease Medical patient at bed rest Age 61-74 Arthroscopic surgery Major open surgery (> 45 min) Laparoscopic surgery (> 45 min) Malignancy Confined to bed (> 72 hours) Immobilizing plaster cast Central venous access Age >= 75 History of VTE Family history of VTE Factor V Leiden Prothrombin [id number] Lupus anticoagulant Anticardiolipin antibodies Elevated serum homocysteine Heparin-induced thrombocytopenia Other congenital or acquired thrombophilia Stroke (< 1 month) Elective arthroplasty Hip, pelvis, or leg fracture Acute spinal cord injury (< 1 month) Prophylaxis Regimen: Total Risk Factor Score Risk Level Prophylaxis Regimen 0-1 Low Early ambulation 2 Moderate Order ONE of the following: *Sequential Compression Device (SCD) *Heparin 5000 units SQ BID 3-4 Higher Order ONE of the following medications: *Heparin 5000 units SQ TID *Enoxaparin/Lovenox 40 mg SQ daily (WT < 150 kg, CrCl > 30 mL/min) *Enoxaparin/Lovenox 30 mg SQ daily (WT < 150 kg, CrCl > 10-29 mL/min) *Enoxaparin/Lovenox 30 mg SQ BID (WT < 150 kg, CrCl > 30 mL/min) AND/OR *Sequential Compression Device (SCD) 5 or more Highest Order ONE of the following medications: *Heparin 5000 units SQ TID (Preferred with Epidurals) *Enoxaparin/Lovenox 40 mg SQ daily (WT < 150 kg, CrCl > 30 mL/min) *Enoxaparin/Lovenox 30 mg SQ daily (WT < 150 kg, CrCl > 10-29 mL/min) *Enoxaparin/Lovenox 30 mg SQ BID (WT < 150 kg, CrCl > 30 mL/min) AND *Sequential Compression Device (SCD) Assessment and Plan - Assessment (1) Afib Code(s): I48.91 - Unspecified atrial fibrillation Status: Acute (2) Ankle pain, right Code(s): M25.571 - Pain in right ankle and joints of right foot Status: Acute Plan: Etiology is unclear in this acute inflammatory monoarticular arthritis however the acute nature and clinical picture are worrisome for septic joint, will start Rocephin and follow up with interventional radiology for aspiration if INR improved after vitamin K Podiatry consult for further evaluation Empiric Rocephin Follow-up uric acid and add anti-inflammatory In any case patient is unable to ambulate at this time further evaluation for improvement in pain We will add IV morphine
[2017-10-29] MEDS ORDERED: Phytonadione 5 MG/SWFI 5 ML Oral Syringe PO ONE (15:00)
[2017-10-30 05:57] LABS: Baso % (Auto) 0.5 % (0.0-2.0); Eos # (Auto) 0.3 th/mm3 (0.0-0.4); Eos % (Auto) 3.6 % (0.0-4.0); Hematocrit 39.3 % (35.0-46.0); Lymph # (Auto) 1.7 th/mm3 (1.0-4.8); Lymph % (Auto) 22.8 % (9.0-44.0); Mean Corpuscular Hemoglobin 29.1 pg (27.0-34.0); Mean Corpuscular Volume 88.1 fL (80.0-100.0); Mean Platelet Volume 8.4 fL (7.0-11.0); Mono # (Auto) 0.6 th/mm3 (0.0-0.9); Mono % (Auto) 8.5 % (0.0-8.0); Neut # (Auto) 4.9 th/mm3 (1.8-7.7); Neut % (Auto) 64.6 % (16.0-70.0); Platelet Count 275 th/mm3 (150-450); Red Blood Count 4.46 mil/mm3 (4.00-5.30); Red Cell Distribution Width 15.3 % (11.6-17.2); White Blood Count 7.5 th/mm3 (4.0-11.0)
[2017-10-30 06:11] LABS: INR 2.5 Ratio; Prothrombin Time 24.8 sec (9.8-11.6)
[2017-10-30 06:23] LABS: Calcium 8.4 mg/dL (8.5-10.1); Carbon Dioxide 28.6 meq/L (21.0-32.0); Potassium 3.2 meq/L (3.5-5.1)
[2017-10-30] MEDS: Lisinopril 10 MG Tablet PO SCH (08:51)
[2017-10-30] MEDS: hydroCHLOROthiazide 25 MG Tablet PO SCH (08:51)
[2017-10-30] MEDS ORDERED: Non-Formulary Drug (Lisinopril-Hydrochlorothiazide [Lisinopril-Hydrochlorothiazide] 1 TAB) PO SCH (09:00)
--- NOTE | 2017-10-30 10:29 | P.RAD ---
Post Procedure Progress Note - Pre Procedure Diagnosis (1) Ankle pain, right - Post Procedure Diagnosis (1) Ankle pain, right - Procedure Information Procedure Date: 10/30/17 Supervising Radiologist: Cm Alicea MD Estimated blood loss (mL): 2 Anesthesia: Local - Plan of Activity Patient to Unit: Nursing Unit Patient Condition: Good Additional Comments: right ankle aspirated without difficulty See PACS Report for procedural detail/treatment.
--- NOTE | 2017-10-30 12:03 | IR ---
EXAM DATE: 10/30/2017 11:07 AM EDT AGE/SEX: 82 years / Female INDICATIONS: Patient presents with right ankle swelling in need of aspiration for further evaluation . CLINICAL DATA: This is the patient's initial encounter. Patient reports that signs and symptoms have been present for 3 days and indicates a pain score of 0/10. MEDICAL/SURGICAL HISTORY: . A fib, Arthritis, Elevated cholesterol, Hypertension . H/O bladder repair surgery, H/Of shoulder surgery, History of hip replacement, History of knee replacement COMPARISON: [facility], US LEG RIGHT VENOUS DOPPLER, 08/20/2017. . IMAGE SERIES: 2 DEVICE(S): 22 gauge needle was placed into the Right ankle joint. RESPONSE: Pain Score Pre Procedure: 0/10 Pain Score Post Procedure: 4/10 FLUID: Total volume of 2 cc of . . PROCEDURE : 1. Fluoroscopically guided aspiration. The risks, benefits and alternatives to the procedure were explained and verbal and written consent w as obtained. The site was prepped in sterile fashion. Full sterile technique was used, including ca p, mask, sterile gloves and gown and a large sterile sheet. Hand hygiene and 2% chlorhexidine and/or betadine/alcohol prep was utilized per protocol for cutaneous antisepsis. The skin and subcutaneous tissues were infiltrated with local anesthetic solution. A suitable site above the right ankle joint was identified with ultrasound guidance. A small pocket o f fluid was evident. A 22-gauge needle was advanced into this under direct ultrasound guidance. Appro ximately 2 cc of hemorrhagic fluid was removed. A second site was selected. The procedure was repeated again approximately 1.5-2 cc of hemorrhagic fl uid was aspirated. The patient tolerated the procedure well and there were no complications. Samples were sent to [facility] for Gram stain culture and sensitivity. CONCLUSION: 1. Uncomplicated aspiration as above. Electronically signed by: Cm Alicea MD 10/30/2017 12:02 PM EDT
--- NOTE | 2017-10-30 14:54 | P.PNIM ---
Subjective Interval history: Patient seen after ankle joint aspiration. She reports she is feeling much better. She is able to move the joint freely and able to bear weight on it. Inquiring about when she will go home. Physical Exam Vital signs: Vital Signs 10/29/17 17:55 10/29/17 20:00 10/30/17 00:00 Temperature 96.5 F L 97.3 F L 96 F L Pulse Rate 92 H 103 H 89 Respiratory Rate 18 20 20 Blood Pressure 128/82 110/79 106/77 Pulse Oximetry 93 L 93 L 92 L 10/30/17 08:00 10/30/17 12:00 Temperature 97.5 F L 97.3 F L Pulse Rate 105 H 99 H Respiratory Rate 18 18 Blood Pressure 113/83 118/89 Pulse Oximetry 94 L 99 Intake & Output 10/29/17 10/30/17 10/30/17 18:59 06:59 18:59 Intake Total 100 / 100 240 / 240 Balance 100 / 100 240 / 240 Weight 81 kg 81.1 kg Intake: IV 100 / 100 Rocephin Inj 1,000 MG In NS Inj 100 / 100 100 ML @ 200 mls/hr IV.SIG Q24H GL[facility] Rx#:[id number] Oral 240 / 240 Other: # Voids 0 Narrative: GENERAL: This is a well-nourished, well-developed patient, in no apparent distress. CARDIOVASCULAR: Normal rate and regular rhythm without murmurs, gallops, or rubs. RESPIRATORY: Good respiratory efforts. Breath sounds equal and clear to auscultation bilaterally. GASTROINTESTINAL: Abdomen soft, non-tender, non-distended. Normal active bowel sounds MUSCULOSKELETAL: Bilateral hallux valgus deformity of the ankles. Minimal edema of the right dorsal foot NEURO: Alert & Oriented x4 to person, place, time, situation. Moves all ext x4 PSYCH: Appropriate mood and affect. Results - Labs CBC & Chem 7: 10/30/17 05:00 10/30/17 05:00 Laboratory Results - last 24 hr 10/29/17 10/30/17 10/30/17 11:55 05:00 05:00 CBC w Diff Auto diff final WBC 7.5 RBC 4.46 Hgb 13.0 Hct 39.3 MCV 88.1 D MCH 29.1 MCHC 33.0 RDW 15.3 Plt Count 275 MPV 8.4 Neut % (Auto) 64.6 Lymph % (Auto) 22.8 [place] % (Auto) 8.5 H Eos % (Auto) 3.6 Baso % (Auto) 0.5 Neut # (Auto) 4.9 Lymph # (Auto) 1.7 [place] # (Auto) 0.6 Eos # (Auto) 0.3 Baso # (Auto) 0.0 WBC Differential . Differential Comment . PT INR Sodium 136 Potassium 3.2 L D Chloride 100 Carbon Dioxide 28.6 Anion Gap 7 BUN 29 H Creatinine 1.00 Estimated GFR 53 L Random Glucose 88 Uric Acid 5.9 Calcium 8.4 L D C-Reactive Protein 10/30/17 10/30/17 05:00 13:36 CBC w Diff WBC RBC Hgb Hct MCV MCH MCHC RDW Plt Count MPV Neut % (Auto) Lymph % (Auto) [place] % (Auto) Eos % (Auto) Baso % (Auto) Neut # (Auto) Lymph # (Auto) [place] # (Auto) Eos # (Auto) Baso # (Auto) WBC Differential Differential Comment PT 24.8 H INR 2.5 Sodium Potassium Chloride Carbon Dioxide Anion Gap BUN Creatinine Estimated GFR Random Glucose Uric Acid Calcium C-Reactive Protein 15.10 H Microbiology 10/30/17 10:00 Other Fungal Smear - Final No fungal elements seen 10/30/17 10:00 Fluid - Synovial Fluid Gram Stain - Final - Imaging Impressions Aspiration 10/30/17 00:00 CONCLUSION: 1. Uncomplicated aspiration as above. Assessment and Plan - Assessment (1) Afib Code(s): I48.91 - Unspecified atrial fibrillation Status: Acute Plan: Rate is not well controlled. Will add low-dose metoprolol. Resume Coumadin. (2) Ankle pain, right Code(s): M25.571 - Pain in right ankle and joints of right foot Status: Acute Plan: Etiology is unclear in this acute inflammatory monoarticular arthritis however the acute nature and clinical picture are worrisome for septic joint, patient started on Rocephin. Status post joint aspiration by IR. Fluid studies pending. Podiatry consulted for recommendations. Uric acid level unremarkable. We will check ESR and CRP. Follow-up on fluid studies. (3) HTN (hypertension) Code(s): I10 - Essential (primary) hypertension Status: Acute Plan: Continue home medications. (1) Afib Qualifiers: Atrial fibrillation type: chronic Qualified Code(s): I48.2 - Chronic atrial fibrillation
--- NOTE | 2017-10-30 18:04 | MB ---
cc: Luna Landis DPM, Laura M DPM DATE: 10/30/2017 CHIEF COMPLAINT: Right ankle pain. HISTORY OF PRESENT ILLNESS: Ms. Jones is an 82-year-old female patient with severe osteoarthritis who came in with a 2-day complaint of erythema and edema to the right ankle with difficulty ambulating. She states that since admission, she has had significant reduction in both the swelling and the pain as well as an increase in range of motion. She has been walking short distances with a walker. She denies any nausea, vomiting, fever, headaches or chills. PAST MEDICAL HISTORY: Includes atrial fibrillation, arthritis, elevated cholesterol, hypertension. PAST SURGICAL HISTORY: Includes a bladder repair surgery, shoulder surgery, hip replacement and a knee replacement. FAMILY HISTORY: Noncontributory. SOCIAL HISTORY: The patient denies tobacco or drug abuse. MEDICATIONS: Please see list. PHYSICAL EXAMINATION: VITAL SIGNS: Temperature is 96.5 with a T-max of 97.5, pulse is 98, blood pressure 123/80, pulse ox 95% O2 on room air. LABORATORY DATA: White count is 7.5, down from 14.2, hemoglobin 13.0, hematocrit 39.3, platelets 275. INR 2.5. Chemistry: Sodium is 136, potassium 3.2, chloride 100, carbon dioxide 28.6, BUN 29, glucose 88. C-reactive protein 15.1, IR-guided ankle joint tap cytology negative for any bacteria growth. IMAGING STUDIES: X-rays show a decrease in tibiotalar joint space without any severe erosion. No gas in the soft tissues. No fractures or dislocations. ASSESSMENT AND PLAN: 1. Right ankle pain. The patient shows marked improvement since admission. - Cytology negative for any signs of septic joint. - Physical therapy has been ordered to clear the patient for independent discharge home. -Would also suggest antibiotics for 7-10 days for soft tissue coverage, as she appeared to respond well to antibiotics over the last 48 hours. Thank you for this consultation. Please call with any questions or concerns. Luna Landis DPM LMW/SA , 05:49 PM , 05:55 PM [facility]
--- NOTE | 2017-10-31 08:20 | P.DS ---
Date of admission: 10/29/17 13:35 Primary care physician: Jasen Mckeon MD Brief History from admission: HPI from the admitting physician Patient is a 82-year-old female with a history of severe hallux valgus bilaterally with multiple joints affected by severe osteoarthritis. She has has significant erythema and edema of the right ankle and foot for the last 2 days. She also injury and has had no systemic symptoms. She does have some skin abrasions not been able to ambulate. Pain has been relieved in the emergency room after Percocet. The patient was seen by the ER doctor who did attempt a joint aspiration was unsuccessful due to the increased edema and difficulty finding landmarks of the ankle. Patient normally does not take any pain she is come to the hospital for further evaluation. Update on the day of discharge 10/31/17: Patient reports she is feeling much better. She is able to bear weight and move the ankle joint freely. She is eager to go home. DS: Diagnosis - Discharge Diagnosis (1) Afib Status: Acute (2) Ankle pain, right Status: Acute (3) HTN (hypertension) Status: Acute (4) Ankle joint effusion Status: Acute DS: Medications - Discharge Medications Prescriptions: cephalexin [Keflex] 500 mg PO QID 7 Days #28 cap DS: Summary Hospital Course: 82-year-old female with atrial fibrillation admitted right ankle swelling. The patient was admitted to rule out septic joint. She was treated with empiric Rocephin. Podiatry consulted on the patient. Aspiration of the ankle joint fluid was done. She had significant relief from her discomfort. Fluid studies were unremarkable. This is thought to be an inflammatory type arthritis. Uric acid level unremarkable. She is to follow up outpatient with podiatry. She is discharged in good condition. Regarding atrial fibrillation, heart rate was not well controlled. She was started on low-dose metoprolol. She is to continue on Coumadin. - Time Spent with Patient Total time spent providing and/or coordinating discharge services: Less than 30 minutes - Quality: VTE Deep Vein Thrombosis/Pulmonary Embolism Present on Admission: No Exam Vital signs: Vital Signs 10/30/17 12:00 10/30/17 15:36 10/30/17 20:00 Temperature 97.3 F L 96.5 F L 98.2 F Pulse Rate 99 H 98 H 106 H Respiratory Rate 18 16 20 Blood Pressure 118/89 123/80 134/91 H Pulse Oximetry 99 95 95 10/31/17 00:00 10/31/17 07:21 Temperature 98 F 97.3 F L Pulse Rate 102 H 70 Respiratory Rate 20 20 Blood Pressure 122/77 172/96 H Pulse Oximetry 93 L 96 Intake & Output 10/30/17 10/31/17 10/31/17 18:59 06:59 18:59 Intake Total 1180 / 1180 120 / 120 Balance 1180 / 1180 120 / 120 Weight 81.1 kg Intake: IV 100 / 100 Rocephin Inj 1,000 MG In NS Inj 100 / 100 100 ML @ 200 mls/hr IV.SIG Q24H [facility] Rx#:[id number] Oral 1080 / 1080 120 / 120 Other: # Voids 4 2 # Bowel Movements 0 Narrative: GENERAL: This is a well-nourished, well-developed patient, in no apparent distress. CARDIOVASCULAR: Normal rate and regular rhythm without murmurs, gallops, or rubs. RESPIRATORY: Good respiratory efforts. Breath sounds equal and clear to auscultation bilaterally. GASTROINTESTINAL: Abdomen soft, non-tender, non-distended. Normal active bowel sounds MUSCULOSKELETAL: Bilateral hallux valgus deformity of the ankles. Minimal edema of the right dorsal foot NEURO: Alert & Oriented x4 to person, place, time, situation. Moves all ext x4 PSYCH: Appropriate mood and affect. Results Procedures completed during hospitalization: Aspiration of the right ankle joint effusion Labs on day of discharge: Labs from last 24 hours 10/30/17 10/30/17 13:36 13:36 ESR 5 C-Reactive Protein 15.10 H - Impressions ITS Impressions Ankle X-Ray 10/29/17 11:32 CONCLUSION: Chronic change as described above. An acute bony abnormality is not clearly seen. There is soft tissue swelling. Aspiration 10/30/17 00:00 CONCLUSION: 1. Uncomplicated aspiration as above. Discharge Plan - Discharge Disposition Patient Disposition: 01 Discharge Home - Discharge Condition Condition: Stable - Discharge Order Discharge Orders: Discharge Order (Routine); Ordered 10/31/17 Ordered By: Jean-Paul Buckner - Physicians Team Primary Care Provider: Jasen Mckeon Attending Provider: Jean-Paul Buckner Other Providers: Luna Landis DPM
[2017-10-31] MEDS: Lisinopril 10 MG Tablet PO SCH (08:35)
[2017-10-31] MEDS: hydroCHLOROthiazide 25 MG Tablet PO SCH (08:36)
== END 2017-10-31 10:08 | disposition home or self-care (01) ==
LOC: PH3 09:53 → PHED 09:53 → PHEDA 13:35 → INTOOBSV 13:35 → PH3 15:50
PROVIDERS: ADMIT Family Medicine; ATTEND Family Medicine